=== PATIENT | female | born 1950 | race Caucasian/White ===

== ENCOUNTER 2017-10-23 21:37 | Emergency (ER) | payer OTHER, MEDICARE ==
[~2017-10-23] VITALS: Ht 147.3 cm; Wt 68.1 kg
[2017-10-23 22:00] LABS: HEMATOCRIT 40.9 % (36.0-46.0); HEMOGLOBIN 13.7 G/DL (11.9-15.5); MCH 29.3 PG (29.0-34.0); MCHC 33.5 G/DL (30.0-36.0); MCV 87.6 FL (83-99); PLATELET COUNT 248 K/uL (156-360); RBC DIS.WIDTH-CV 12.8 % (11.8-14.6); RBC DIS.WIDTH-SD 41.1 % (39-53); RED BLOOD COUNT 4.67 M/uL (3.80-5.20); WHITE BLOOD COUNT 8.9 K/uL (4.1-10.2)
[2017-10-23 22:12] LABS: CHLORIDE 107 mEq/L (99-109); POTASSIUM 4.1 mEq/L (3.7-5.4); SODIUM 141 mEq/L (136-147)
[2017-10-23 22:14] LABS: GLUCOSE 100 mg/dL (70-99)
[2017-10-23 22:18] LABS: CREATININE 1.1 mg/dL (0.6-1.3); GFR ESTIMATE (CALCULATED) 53 mL/min/
[2017-10-23 22:19] LABS: UREA NITROGEN (BUN) 19 mg/dL (9-23)
[2017-10-23] MEDS ORDERED: HYCODAN SYRUP480 ML PO (23:44)
[2017-10-23] MEDS ORDERED: PREDNISONE20 MG PO (23:44)
[2017-10-24 00:25] VITALS: BP 125/78
== END 2017-10-24 00:26 | disposition home or self-care (01) ==
LOC: EME 21:37
DX: J20.9 Acute bronchitis, unspecified (principal); J45.909 Unspecified asthma, uncomplicated; M79.7 Fibromyalgia; K21.9 Gastro-esophageal reflux disease without esophagitis
CPT/HCPCS: 71046; 80048; 85027; 94640; 99281; 99284; J7512